=== PATIENT | male | born 1980 | race Two or more races ===

== ENCOUNTER 2019-03-30 14:05 | Emergency (ER) | payer MEDICAID ==
[~2019-03-30] VITALS: Ht 180.3 cm; Wt 81.6 kg
[2019-03-30 14:25] VITALS: BP 142/100
== END 2019-03-30 14:59 | disposition home or self-care (01) ==
LOC: ER 14:05
DX: E11.621 Type 2 diabetes mellitus with foot ulcer (principal); L97.519 Non-pressure chronic ulcer of other part of right foot with unspecified severity; L03.115 Cellulitis of right lower limb

== ENCOUNTER 2019-05-12 18:29 | Inpatient (IN) | payer MEDICAID ==
[~2019-05-12] VITALS: Ht 180.3 cm; Wt 86.2 kg
[2019-05-13 00:18] LABS: Basophils # (auto) 0 uL; Basophils % (auto) 0.6 % (0.0-2.0); Eosinophils # (auto) 0.1 uL; Eosinophils % (auto) 1.8 % (0.0-7.0); Hematocrit 47.2 % (41.0-53.0); Lymphocytes # (auto) 2.2 uL; Lymphocytes % (auto) 28.6 % (10.0-50.0); Mean Corpuscular Hemoglobin 29.6 pg (28.0-32.0); Mean Corpuscular Hgb Conc. 33.9 g/dL (32.0-36.0); Mean Corpuscular Volume 87.3 fL (80.0-100.0); Monocytes # (auto) 0.6 uL; Monocytes % (auto) 8.4 % (0.0-12.0); Neutrophils # (auto) 4.6 uL; Neutrophils % (auto) 60.6 % (37.0-80.0); Platelet Count (auto) 232 10^3/uL (140-450); Red Cell Distribution Width 14.8 % (11.8-14.3); White Blood Cell 7.5 10^3/uL (4.4-10.8)
[2019-05-13 00:33] LABS: INR < 0.93 (0.9-1.15); Partial Thromboplastin Time 29.3 sec (23.64-32.05)
[2019-05-13 01:30] LABS: Albumin 3.7 g/dL (3.4-5.0); BUN/Creatinine Ratio 25.3; Calcium 8.7 mg/dL (8.5-10.1); Magnesium 1.8 mg/dL (1.6-2.6)
[2019-05-13 01:35] LABS: Bilirubin, Total 0.5 mg/dL (0.2-1.0); Total Protein 7.9 g/dL (6.4-8.2)
[2019-05-13] MEDS ORDERED: DEXTROSE (50%) 50ML SYRG IV PRN (04:30)
[2019-05-13] MEDS ORDERED: ONDANSETRON HCL 4 MG/2 ML VIAL IV PRN (04:30)
[2019-05-13] MEDS ORDERED: TEMAZEPAM 15 MG CAP PO PRN (04:30)
[2019-05-13] MEDS ORDERED: MECLIZINE HCL 25 MG TAB PO PRN (04:30)
[2019-05-13] MEDS ORDERED: ACETAMINOPHEN 325 MG TAB PO PRN (04:30)
[2019-05-13] MEDS ORDERED: MORPHINE SULF INJ 2 MG/ML SYRINGE 1ML IV PRN ×2 (05:00→11:30)
[2019-05-13] MEDS ORDERED: NITROGLYCERIN 0.4 MG SL TAB SL PRN (05:00)
[2019-05-13] MEDS: InsuLIN REG 1unit/0.01ml Soln (100units/ml) SC SCH ×2 (06:00→12:14)
[2019-05-13] MEDS: ACCU-CHEK COMFORT CURVE STRIP VI SCH ×2 (06:10→12:15)
[2019-05-13 06:40] LABS: Cholesterol 195 mg/dL (< 200); HDL Cholesterol 52 mg/dL (40-59); LDL Cholesterol 131 mg/dL (< 100); Triglycerides 98 mg/dL (< 150)
[2019-05-13] MEDS ORDERED: ADENOSINE 72 MG in GIVE UN-DILUTED 0 ML IV STA (08:43)
[2019-05-13 09:21] VITALS: BP 150/103
[2019-05-13] MEDS ORDERED: ASPirin 81 mg TAB PO SCH (10:00)
[2019-05-13] MEDS ORDERED: FAMOTIDINE 20 MG TAB PO SCH (10:00)
[2019-05-13] MEDS ORDERED: HCTZ 25 MG TAB PO SCH (10:00)
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
--- NOTE | 2019-05-13 10:55 | NUR ---
SPOKE WITH DR Josh RAMOS, ORDERS TO DC PATIENT IF STRESS TEST IS NEGATIVE.
[2019-05-13] MEDS ORDERED: ATOR20TA50 PO (11:07)
[2019-05-13] MEDS ORDERED: MECL-87 PO (11:07)
[2019-05-13] MEDS ORDERED: HCTZ25T PO (11:07)
[2019-05-13] MEDS ORDERED: HYDROcodone-ACET 5/325MG TAB PO PRN (11:30)
--- NOTE | 2019-05-13 12:12 | NUR ---
PT RIGHT HEEL WOUND CLEANSED WITH 0.9 NS, PATTED DRY WITH 4X4 GAUZE, AND COVERED WITH OPTIFOAM.
--- NOTE | 2019-05-13 13:44 | NUR ---
CALLED PBX AND PAGED DR HYMAN FOR STRESS TEST RESULTS, AWAITING CALL BACK.
--- NOTE | 2019-05-13 13:49 | NUR ---
DR HYMAN CALLED BACK, HE REPORTS THE ECHO AND STRESS TEST WAS DONE, DR STEEL WILL READ STRESS TEST AND HE WILL LOOK AT ECHO AND CALL BACK IF PT IS CLEARED TO DC.
--- NOTE | 2019-05-13 15:14 | NUR ---
Discharge planning per consult, patient has orders for home health. Referral faxed to [facility] Nwdwsa-[phone], placed a follow up call, spoke with Kimberly and was advised that they will accept this patient upon discharge. Request for auth was sent to [facility]. Nurse Lemus was advised of dc plan. Addendum: 05/13/19 at 1522 by DESTINY BURDEN Amended: Links added.
--- NOTE | 2019-05-13 15:20 | NUR ---
Vivienne LESIA called and reports pt is set up with [facility] on discharge, it will begin when pt dc's. Spoke with Dr Mayelin MD reports pt is cleared for discharge. Spoke with dr Dinora MD reports pt is clear for discharge as well, stress test, echo, and carotid ultrasound all negative.
[2019-05-13 16:58] VITALS: BP 130/85
[2019-05-13 17:03] VITALS: BP 130/93
--- NOTE | 2019-05-13 18:32 | NUR ---
Discharge instructions given as ordered. Encourage to follow up with PMD, Dr Reynolds and Dr Mays as instructed. All questions and concerns addressed. Patient verbalized understanding. Medication reconciliation form completed and copy given to patient. IV removed with catheter intact, pressure dressing applied. Telemetry unit returned to ICU. Patient taken to vehicle via wheelchair with all personal belongings, accompanied by staff and family member. No distress noted at time of departure.
[2019-05-13] MEDS ORDERED: ATORVASTATIN 20 MG TAB PO SCH (22:00)
== END 2019-05-13 18:30 | disposition home health service (06) | DRG 190 ==
LOC: ER 18:29 → TELE 18:30 → TELE-WESTW 05-13 10:00
PROVIDERS: ADMIT Nurse Practitioner; ATTEND Internal Medicine
DX: I21.A1 Myocardial infarction type 2 (principal); E11.9 Type 2 diabetes mellitus without complications; F07.81 Postconcussional syndrome; I10 Essential (primary) hypertension; I95.1 Orthostatic hypotension; G89.4 Chronic pain syndrome; X58.XXXD Exposure to other specified factors, subsequent encounter; M54.5 Low back pain; E78.5 Hyperlipidemia, unspecified; Z86.73 Personal history of transient ischemic attack (TIA), and cerebral infarction without residual deficits; S22.43XD Multiple fractures of ribs, bilateral, subsequent encounter for fracture with routine healing
CPT/HCPCS: 36415; 70450; 71045; 78452; 80053; 80061; 82962; 83735; 83880; 84443; 84484; 85025; 85379; 85610; 85730; 93005; 93017; 93306; 93886; 96365; G0378; J0153; J1815

== ENCOUNTER 2020-11-21 23:33 | Emergency (ER) | payer MEDICAID ==
[~2020-11-21] VITALS: Ht 180.3 cm; Wt 85.3 kg
[~2020-11-21 23:33] MED LIST: ATOR20TA50 PO; HYDR25TA5 PO; MECL25TA18 PO
[2020-11-21 23:44] VITALS: BP 160/85
== END 2020-11-22 02:28 | disposition still patient (30) ==
LOC: ER 23:33
DX: M62.81 Muscle weakness (generalized) (principal); E11.9 Type 2 diabetes mellitus without complications; G89.29 Other chronic pain; Z79.899 Other long term (current) drug therapy

== ENCOUNTER 2021-05-21 10:06 | Emergency (ER) | payer MEDICAID ==
[~2021-05-21] VITALS: Ht 180.3 cm; Wt 88.5 kg
[2021-05-21 10:27] VITALS: BP 138/84
== END 2021-05-21 11:35 | disposition home or self-care (01) ==
LOC: ER 10:06
DX: S01.532A Puncture wound without foreign body of oral cavity, initial encounter (principal); E11.9 Type 2 diabetes mellitus without complications; Z79.899 Other long term (current) drug therapy; X58.XXXA Exposure to other specified factors, initial encounter; Y93.89 Activity, other specified; Y92.89 Other specified places as the place of occurrence of the external cause; Y99.8 Other external cause status

== ENCOUNTER 2021-08-12 11:32 | Emergency (ER) | payer MEDICAID ==
[~2021-08-12] VITALS: Ht 180.3 cm; Wt 95.3 kg
[2021-08-12 12:08] VITALS: BP 154/98
[2021-08-12] MEDS ORDERED: MELO7.5T9 PO (13:06)
== END 2021-08-12 13:12 | disposition home or self-care (01) ==
LOC: ER 11:32
DX: S63.501A Unspecified sprain of right wrist, initial encounter (principal); M70.32 Other bursitis of elbow, left elbow; E11.9 Type 2 diabetes mellitus without complications; Z79.899 Other long term (current) drug therapy; W18.39XA Other fall on same level, initial encounter; Y93.89 Activity, other specified; Y92.89 Other specified places as the place of occurrence of the external cause; Y99.8 Other external cause status
CPT/HCPCS: 73080; 73110

== ENCOUNTER 2024-09-01 06:51 | Day surgery (SDC) | payer MEDICAID ==
[~2024-09-01] VITALS: Ht 180.3 cm; Wt 94.8 kg
[~2024-09-01 06:51] MED LIST changes: +AMLO1TAB22 PO; -ATOR20TA50 PO; +CLON0.1T PO; +HYDR-4798 PO; -HYDR25TA5 PO; +INSU1INJ19 SC; +INSUINJ2 SC; +LISI20TA56 PO; -MECL25TA18 PO; +SEMA2INJ3 SC
[2024-09-01] MEDS ORDERED: IODIXANOL 320MG/ML 100ML BTL IV ONE (09:05)
[2024-09-01] MEDS ORDERED: ANGIOMAX 250 MG VIAL IV ONE (09:10)
[2024-09-01] MEDS ORDERED: HEPARIN SODIUM (PORCINE) 5000 UNITS/ML 1ML VIAL ONE (09:10)
[2024-09-01] MEDS ORDERED: VERAPAMIL 2.5MG/ML INJ 2ML VIAL IV ONE (09:10)
[2024-09-01] MEDS ORDERED: fentaNYL CITRATE 100 MCG/2 ML VL ONE (09:11)
[2024-09-01] MEDS ORDERED: SODIUM CHL 0.9% 0 ML ONE (09:11)
[2024-09-01] MEDS ORDERED: LIDOCAINE 2%HCL (LOCAL ANESTH.) INJ 20ML MDV ONE (09:11)
[2024-09-01] MEDS ORDERED: MIDAZOLAM HCL 2MG/2ML 2ml VIAL (1mg/ml) ONE (09:11)
--- NOTE | 2024-09-01 09:49 | DVHOP2 ---
Operative Report Operative Report CARDIAC GRAIN COMBINER PROCEDURE REPORT [place], [place] Date of Service: 09/01/24 Supervisor Cell Efficiency: Roosevelt Gonzalez MD PROCEDURES PERFORMED: Coronary angiogram, left heart catheterization, conscious sedation administration and supervision, less than 15 minutes; fluoroscopy use and interpretation. PREOPERATIVE DIAGNOSES: Abnormal stress test with CCS class 3 angina, POSTOP DIAGNOSIS: mild cad DESCRIPTION OF PROCEDURE: The patient or appropriate family signed informed consent understanding the risks, benefits and alternatives of the procedure, they wished to proceed. The patient was brought to the cardiac director of laboratory operations in [place] state. The patient was prepped in a sterile fashion. Sedation was used per cardiac cath protocol. I administered 2 mL of 2% lidocaine to the right wrist. With an antegrade front wall puncture. I cannulated the right radial artery and placed a 6-[place] Glidesheath slender. Next, an intra-arterial spasmolytic was administered. Next, a - 6French [place] catheter and and were used for coronary angiogram and LVEDP measurement and pressure pullback. At the completion of procedure, all guides and wires were removed, and there were no immediate complications. FINDINGS: RCA: Moderate vessel off the right sinus of Valsalva, there is no severe flow limiting stenosis. LEFT MAIN: Moderate size left main, it bifurcates into LAD and circumflex. no severe stenosis. CIRCUMFLEX: Moderate caliber vessel coming off the left main with no flow limiting stenosis. LAD: LAD is a moderate caliber vessel coming of the left main. diffuse luminal irregularities . D1 2 and 3 all have ostial plaque noted that is moderate. LVEDP of 2 mmhg less than 25 cc of contrast used for procedure creat 1.9 CONCLUSIONS: 1. mild CAD ROOSEVELT GONZALEZ MD Sep 01, 2024 09:49
== END 2024-09-01 12:00 | disposition home or self-care (01) ==
LOC: CATH 06:51
PROVIDERS: ATTEND Internal Medicine
DX: I25.119 Atherosclerotic heart disease of native coronary artery with unspecified angina pectoris (principal); R06.02 Shortness of breath; E10.9 Type 1 diabetes mellitus without complications; Z79.4 Long term (current) use of insulin; Z79.82 Long term (current) use of aspirin
CPT/HCPCS: 93458; C1894; J1644; J2250; J3010; J7030; Q9967; 99152